=== PATIENT | male | born 1995 | race Two or more races ===

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

== ENCOUNTER 2017-04-26 00:42 | Emergency (ER) | payer OTHER ==
[2017-04-26 01:00] VITALS: BP 153/83; PULSE 87; TEMP 98.3; BMI 34.8
[2017-04-26] MEDS ORDERED: diphenhydrAMINE HCL 25 MG CAPSULE (FP) PO ONE ×2 (02:16→02:26)
--- NOTE | 2017-04-26 02:24 | PDOC ---
History of Present Illness - General Chief Complaint: Rash Stated Complaint: RASH Time Seen by Provider: 04/26/17 01:41 History Source: Patient Exam Limitations: No Limitations - History of Present Illness Initial Comments: 04/26/17 02:16 The patient is a 21M with no PMH who presents with 1 week of a rash. The patient states that he noticed a rash on his inner thighs and then began to spread to his buttocks and states that today it is on his wrists as well. He has never had allergies and denies any new use of soaps, lotions, deodorants, etc. He says he's never had a rash like this before. He denies any other complaints. The patient works at [employer] and is on his feel for work. Past History - Past Medical History Allergies/Adverse Reactions: Allergies Allergy/AdvReac Type Severity Reaction Status Date / Time No Known Allergies Allergy Verified 04/26/17 00:52 Home Medications: Ambulatory Orders NK [No Known Home Medication] 04/26/17 - Immunization History Immunization Up to Date: Yes - Suicide/Smoking/Psychosocial Hx Smoking Status: No Smoking History: Never smoked Have you smoked in the past 12 months: No Number of Cigarettes Smoked Daily: 0 Information on smoking cessation initiated: No Hx Alcohol Use: No Drug/Substance Use Hx: No Substance Use Type: None Review of Systems - Review of Systems Able to Perform ROS?: Yes Comments:: 04/26/17 02:19 GENERAL/CONSTITUTIONAL: No fever or chills. No weakness. HEAD, EYES, EARS, NOSE AND THROAT: No change in vision. No ear pain or discharge. No sore throat. CARDIOVASCULAR: No chest pain, palpitations, or lightheadedness. RESPIRATORY: No cough, wheezing, shortness of breath, or hemoptysis. GASTROINTESTINAL: No nausea, vomiting, diarrhea, constipation, or abdominal pain. GENITOURINARY: No dysuria, frequency, hematuria, or change in urination. MUSCULOSKELETAL: No joint or muscle swelling or pain. No neck or back pain. SKIN: Positive for new rash. NEUROLOGIC: No headache, numbness, tingling, weakness, loss of consciousness, or change in strength/sensation. ENDOCRINE: No increased thirst. No abnormal weight change. HEMATOLOGIC/LYMPHATIC: No anemia, easy bleeding, or history of blood clots. ALLERGIC/IMMUNOLOGIC: No hives or skin allergy. Is the patient limited Mauritanian proficient: No *Physical Exam - Vital Signs Last Vital Signs Temp Pulse Resp BP Pulse Ox 98.3 F 87 18 153/83 97 04/26/17 00:45 04/26/17 00:45 04/26/17 00:45 04/26/17 00:45 04/26/17 00:45 - Physical Exam Comments: 04/26/17 02:58 GENERAL: Well developed, well nourished. Awake and alert. No acute distress. HEENT: Normocephalic, atraumatic. Hearing grossly normal. Moist mucous membranes. PERRLA, EOMI. No conjunctival pallor. NECK: Supple. Full ROM. No JVD. CARDIOVASCULAR: Regular rate and rhythm. No murmurs, rubs, or gallops. PULMONARY: No evidence of respiratory distress. Lungs clear to auscultation bilaterally. No wheezing, rales or rhonchi. ABDOMINAL: Soft. Non-tender. Non-distended. No rebound or guarding. MUSCULOSKELETAL: Normal range of motion at all joints. No bony deformities or tenderness. EXTREMITIES: No cyanosis. No clubbing. No edema. No calf tenderness. SKIN: Erythematous rash around anterior inner thighs, not warm to touch, papular , with erythematous papules that is pustular on the buttocks. Warm and dry. Normal capillary refill. No rashes. No jaundice. NEUROLOGICAL: Alert, awake, appropriate. Cranial nerves 2-12 intact. Normal speech. Gait is normal without ataxia. PSYCHIATRIC: Cooperative. Good eye contact. Appropriate mood and affect. Medical Decision Making - Medical Decision Making 04/26/17 03:00 The patient is a 21M with no PMH who presents with a rash which is likely folliculitis. Will d/c with f/u with resident clinic. *DC/Admit/Observation/Transfer Diagnosis at time of Disposition: Rash - Discharge Dispostion Disposition: HOME Condition at time of disposition: Stable Admit: No - Referrals Referrals: Wong David MD [Staff Physician] - - Patient Instructions Printed Discharge Instructions: DI for Folliculitis Additional Instructions: Please return to the ER if symptoms persist, worsen, or new symptoms arise. Please follow up with your primary care physician in 2-3 days. Please return to the ER if you have any signs or symptoms of chest pain, shortness of breath, uncontrollable fever, chills, nausea, vomiting, numbness, tingling, or weakness in any part of your body, changes in vision, or slurred speech. - Post Discharge Activity
--- NOTE | 2017-04-26 06:21 | PDOC ---
Attending Attestation - HPI HPI: 04/26/17 06:22 Patient is a 21 year old male with no significant past medical history who presents to the ED with complaints of groin rash that began 1 week ago. Patient reports experiencing inner thigh rash that began form last week and has to begun to radiate to buttocks. He reports noticing this morning the formation of the rash on his left wrist, prompting him to come into the ED for further evaluation. Patient states he was unable to schedule an appointment with his PMD until June of this year. Denies chest pain, Sob. Denies nausea, vomiting. Denies fevers, chills. Denies change in food, change in soaps, detergents. Denies contact with sick individuals, out of state traveling. Denies any other symptoms. Allergies: None Social history: Lives with parents. No smoking. No alcohol. No illicit drugs. Surgical history: None PMD: Not on staff - Physicial Exam PE: 04/26/17 06:22 GENERAL: Awake, alert, and fully oriented, in no acute distress HEAD: No signs of trauma EYES: PERRLA, EOMI, sclera anicteric, conjunctiva clear ENT: Auricles normal inspection, hearing grossly normal, nares patent, oropharynx clear without exudates. Moist mucosa NECK: Normal ROM, supple, no lymphadenopathy, JVD, or masses LUNGS: Breath sounds equal, clear to auscultation bilaterally. No wheezes, and no crackles HEART: Regular rate and rhythm, normal S1 and S2, no murmurs, rubs or gallops ABDOMEN: Soft, nontender, normoactive bowel sounds. No guarding, no rebound. No masses EXTREMITIES: Normal range of motion, no edema. No clubbing or cyanosis. No cords , erythema, or tenderness NEUROLOGICAL: Normal speech, cranial nerves intact, negative pronator drift, 5/ 5 strength in all 4 extremities, normal sensation to light touch in all 4 extremities, normal cerebellar exam, normal gait, normal reflexes and tone SKIN: +Erythematous papules in the groin bilaterally. +Erythematous papules on the buttocks. +Few pustular papules on the buttocks. REmainder of skin exam: warm, Dry, normal turgor, no rashes or lesions noted. - Medical Decision Making 04/26/17 06:22 Documentation prepared by Darryl Delaney, acting as medical office professional instructor for Yomna Nassef, MD, /DO. <ElainaDarryl gutierrez - Last Filed: 04/26/17 06:22> - Resident Resident Name: Ramirez Matthews - ED Attending Attestation I have performed the following: I have examined & evaluated the patient, The case was reviewed & discussed with the resident, I agree w/resident's findings & plan, Exceptions are as noted - Medical Decision Making 04/26/17 06:39 21yo M p/w papular rash in groin/buttocks, some pustules, likely folliculitis. No associated systemic symptoms of fever, bodyaches, myalgias, N/V. PT referred to family medicine walk in clinic. I discussed the physical exam findings, ancillary test results and final diagnoses with the patient. I answered all of the patient's questions. The patient was satisfied with the care received and felt comfortable with the discharge plan and treatment plan. The patient will call their primary care physician within 24 hours to arrange follow-up and will return to the Emergency Department with any new, persistent or worsening symptoms. <Yusuf Vera - Last Filed: 04/26/17 06:41>
== END 2017-04-26 03:20 | disposition home or self-care (01) ==
LOC: JER 00:42
DX: R21 Rash and other nonspecific skin eruption (principal)
CPT/HCPCS: 99281-25

== ENCOUNTER 2017-10-07 02:06 | Emergency (ER) | payer OTHER ==
--- NOTE | 2017-10-07 02:51 | PDOC ---
History of Present Illness - General Chief Complaint: Scabies Stated Complaint: RASH Time Seen by Provider: 10/07/17 02:31 History Source: Patient - History of Present Illness Initial Comments: 10/07/17 03:19 22-year-old male complaining of scabies infestation and itchiness and bites to lower extremity. Patient is noted to have interphalangeal bites. No bites to the axilla or groin patient reports that he works at [employer] and needs treatment prior to returning to work Past History - Past Medical History Allergies/Adverse Reactions: Allergies Allergy/AdvReac Type Severity Reaction Status Date / Time No Known Allergies Allergy Verified 04/26/17 00:52 Home Medications: Ambulatory Orders Permethrin 5% Topical Cream [Elimite -] 1 applic TP ONCE #1 tube 10/07/17 - Immunization History Immunization Up to Date: Yes - Suicide/Smoking/Psychosocial Hx Smoking Status: No Smoking History: Never smoked Have you smoked in the past 12 months: No Number of Cigarettes Smoked Daily: 0 Hx Alcohol Use: No Drug/Substance Use Hx: No Substance Use Type: None Review of Systems - Review of Systems Able to Perform ROS?: Yes Is the patient limited Moldovan proficient: No Integumentary: Yes: Pruritus *Physical Exam - Vital Signs 10/07/17 03:18 Last Vital Signs Temp Pulse Resp BP Pulse Ox 98.5 F 70 16 128/78 100 10/07/17 02:28 10/07/17 02:28 10/07/17 02:28 10/07/17 02:28 10/07/17 02:28 - Physical Exam General Appearance: Yes: Appropriately Dressed Extremity: positive: Erythema, Other (bites to bilateral lower extremity and foot. scatterederythemato lower ext arm and fingers) Integumentary: positive: Normal Color, Dry, Warm Neurologic: positive: Fully Oriented, Alert Progress Note - Progress Note Progress Note: SCabies 5 *DC/Admit/Observation/Transfer Diagnosis at time of Disposition: Scabies - Discharge Dispostion Disposition: HOME - Prescriptions Prescriptions: Permethrin 5% Topical Cream [Elimite -] 1 applic TP ONCE #1 tube - Referrals Referrals: Macrina Meraz MD [Staff Physician] - Call tomorrow - Patient Instructions Printed Discharge Instructions: Scabies Additional Instructions: apply lotion to body for 8-14 hours. wash all clothes in hot water. follow up with a zipper setter as soon as possible. - Post Discharge Activity Forms/Work/School Notes: Back to Work
[2017-10-07 03:13] VITALS: BP 128/78; PULSE 70; TEMP 98.5; BMI 28.7
--- NOTE | 2017-10-07 03:20 | PDOC ---
*Physical Exam - Vital Signs Last Vital Signs Temp Pulse Resp BP Pulse Ox 98.5 F 70 16 128/78 100 10/07/17 02:28 10/07/17 02:28 10/07/17 02:28 10/07/17 02:28 10/07/17 02:28 Medical Decision Making - Medical Decision Making 10/07/17 03:20 agree with care from PHUONG Cuellar *DC/Admit/Observation/Transfer Diagnosis at time of Disposition: Scabies - Discharge Dispostion Disposition: HOME Condition at time of disposition: Stable - Prescriptions Prescriptions: Permethrin 5% Topical Cream [Elimite -] 1 applic TP ONCE #1 tube - Referrals Referrals: Macrina Meraz MD [Staff Physician] - Call tomorrow - Patient Instructions Printed Discharge Instructions: Scabies Additional Instructions: apply lotion to body for 8-14 hours. wash all clothes in hot water. follow up with a metal mold dresser as soon as possible. - Post Discharge Activity Forms/Work/School Notes: Back to Work
== END 2017-10-07 03:29 | disposition home or self-care (01) ==
LOC: JER 02:06
DX: B86 Scabies (principal)
CPT/HCPCS: 99281-25

== ENCOUNTER 2018-05-19 12:39 | Emergency (ER) | payer OTHER ==
[2018-05-19 12:45] VITALS: BMI 40.3
[2018-05-19 14:01] LABS: BASO % 0.1 % (0-2.0); EOS % 0.2 % (0-4.5); HEMATOCRIT 48.3 % (35.4-49); HEMOGLOBIN 16.3 GM/dL (11.7-16.9); LYMPH % 7.4 % (8-40); MCH 27.5 pg (25.7-33.7); MCHC 33.7 g/dl (32.0-35.9); MEAN CELL VOLUME 81.6 fl (80-96); MEAN PLT VOLUME 9.1 fl (7.5-11.1); MONO % 6.8 % (3.8-10.2); NEUT % 85.5 % (42.8-82.8); PLATELET COUNT 150 K/MM3 (134-434); RBC 5.93 M/mm3 (4.00-5.60); RDW 13.8 % (11.9-15.9); WHITE BLOOD COUNT 7.9 K/mm3 (4.0-10.0)
[2018-05-19 14:01] LABS: URINE APPEARANCE CLEAR; URINE BILIRUBIN NEGATIVE (<2.0 mg/dL); URINE COLOR YELLOW; URINE GLUCOSE (UA) NEGATIVE (NEGATIVE); URINE KETONE NEGATIVE (NEGATIVE); URINE LEUK ESTERASE TRACE (NEGATIVE); URINE NITRITE NEGATIVE (NEGATIVE); URINE PROTEIN NEGATIVE (NEGATIVE); URINE UROBILINOGEN NEGATIVE mg/dL (0.2-1.0)
[2018-05-19 14:02] LABS: URINE MUCUS RARE
[2018-05-19 14:31] LABS: ALBUMIN 4.2 g/dl (3.4-5.0); ALK PHOS 61 U/L (45-117); ANION GAP 6 MMOL/L (8-16); BLOOD UREA NITROGEN 23 mg/dL (7-18); CALCIUM 8.4 mg/dL (8.5-10.1); CHLORIDE 100 mmol/L (98-107); CO2 27 mmol/L (21-32); CREATININE 1.6 mg/dL (0.55-1.3); GLUCOSE,RANDOM 101 mg/dL (74-106); POTASSIUM 3.6 mmol/L (3.5-5.1); SGOT/AST 8 U/L (15-37); SGPT/ALT 36 U/L (13-61); SODIUM 133 mmol/L (136-145); TOT PROT 9.3 g/dl (6.4-8.2)
[2018-05-19] MEDS ORDERED: ACETAMINOPHEN INJECTION 100 ML IVPB ONE (14:51)
[2018-05-19] MEDS ORDERED: SODIUM CHLORIDE 1,000 ML IV STA ×2 (14:54→15:37)
[2018-05-19] MEDS ORDERED: ACETAMINOPHEN 1000 MG/100 ML VIAL (NON FORMULARY) IVPB ONE (14:54)
[2018-05-19 15:11] LABS: LIPASE 124 U/L (73-393)
--- NOTE | 2018-05-19 15:50 | PDOC ---
History of Present Illness - General Chief Complaint: Pain, Acute Stated Complaint: ABD / BACK PAIN Time Seen by Provider: 05/19/18 14:13 History Source: Patient Exam Limitations: No Limitations - History of Present Illness Travel History: No Initial Comments: 05/19/18 15:10 22-year-old male presents to ED with lower abdominal pain last night followed by 3 episodes of vomiting and 2 episodes of brown watery stool. Patient states then developed bilateral rib pain radiating to his kidneys since 3 AM causing him difficulty sleeping. Patient states a total of approximately 12 episodes of vomiting since onset. Patient denies history of renal stones, difficulty urinating. Recent travel, recent illness, abdominal distention, difficulty breathing or cough. Timing/Duration: reports: constant, changing over time Quality: reports: mild, cramping Abdominal Pain Onset Location: reports: RUQ, LUQ Pain Radiation: reports: back Activities at Onset: reports: none Aggravating Factors: improves with: None Alleviating Factors: improves with: None Past History - Travel Traveled outside of the country in the last 30 days: No Close contact w/someone who was outside of country & ill: No - Past Medical History Allergies/Adverse Reactions: Allergies Allergy/AdvReac Type Severity Reaction Status Date / Time No Known Allergies Allergy Verified 05/19/18 12:43 Home Medications: Ambulatory Orders Permethrin 5% Topical Cream [Elimite -] 1 applic TP ONCE #1 tube 10/07/17 COPD: No - Immunization History Immunization Up to Date: Yes - Suicide/Smoking/Psychosocial Hx Smoking Status: No Smoking History: Never smoked Have you smoked in the past 12 months: No Number of Cigarettes Smoked Daily: 0 Hx Alcohol Use: No Drug/Substance Use Hx: No Substance Use Type: None Patient Lives Alone: No Lives with/in: parents Review of Systems - Review of Systems Able to Perform ROS?: No Is the patient limited [place] Citizen proficient: No Constitutional: Yes: Chills, Fever, Loss of Appetite HEENTM: No: Symptoms Reported Respiratory: No: Symptoms reported Cardiac (ROS): No: Symptoms Reported ABD/GI: Yes: Diarrhea, Nausea, Poor Appetite, Poor Fluid Intake, Vomiting, Abdominal cramping : No: Symptoms Reported Musculoskeletal: Yes: Back Pain Integumentary: No: Symptoms Reported Neurological: No: Symptoms reported Endocrine: No: Symptoms Reported Hematologic/Lymphatic: No: Symptoms Reported *Physical Exam - Vital Signs Last Vital Signs Temp Pulse Resp BP Pulse Ox 101.1 F H 109 H 18 125/76 98 05/19/18 12:43 05/19/18 12:43 05/19/18 12:43 05/19/18 12:43 05/19/18 12:43 - Physical Exam General Appearance: Yes: Nourished, Appropriately Dressed. No: Apparent Distress HEENT: positive: EOMI, CHACE, TMs Normal, Pharynx Normal. negative: Pale Conjunctivae Neck: positive: Supple Respiratory/Chest: positive: Lungs Clear, Normal Breath Sounds. negative: Respiratory Distress, Accessory Muscle Use Cardiovascular: positive: Regular Rhythm, Tachycardia. negative: Murmur Gastrointestinal/Abdominal: positive: Soft, Tenderness (epigastric) Musculoskeletal: negative: CVA Tenderness Extremity: positive: Normal Capillary Refill. negative: Pedal Edema Integumentary: positive: Normal Color, Warm, Moist Neurologic: positive: Normal Mood/Affect, Motor Strength 5/5 (ambulatory) Moderate Sedation - Procedure Monitoring Vital Signs: Procedure Monitoring Vital Signs Temperature 101.1 F H 05/19/18 12:43 Pulse Rate 109 H 05/19/18 12:43 Respiratory Rate 18 05/19/18 12:43 Blood Pressure 125/76 05/19/18 12:43 O2 Sat by Pulse Oximetry (%) 98 05/19/18 12:43 ED Treatment Course - LABORATORY CBC & Chemistry Diagram: 05/19/18 13:15 05/19/18 13:15 - ADDITIONAL ORDERS Additional order review: Laboratory Results 05/19/18 05/19/18 05/19/18 13:22 13:15 13:15 Sodium 133 L Potassium 3.6 Chloride 100 Carbon Dioxide 27 Anion Gap 6 L BUN 23 H Creatinine 1.6 H Creat Clearance w eGFR 55.38 Random Glucose 101 Lactic Acid 1.4 Calcium 8.4 L Total Bilirubin 1.0 AST 8 L ALT 36 Alkaline Phosphatase 61 Total Protein 9.3 H Albumin 4.2 Lipase 124 Urine Color Yellow Urine Appearance Clear Urine pH 5.0 Ur Specific [place] 1.031 Urine Protein Negative Urine Glucose (UA) Negative Urine Ketones Negative Urine Blood 1+ H Urine Nitrite Negative Urine Bilirubin Negative Urine Urobilinogen Negative Ur Leukocyte Esterase Trace Urine WBC (Auto) 11 Urine RBC (Auto) 2 Urine Mucus Rare 05/19/18 13:15 RBC 5.93 H MCV 81.6 MCHC 33.7 RDW 13.8 MPV 9.1 Neutrophils % 85.5 H D Lymphocytes % 7.4 L D Monocytes % 6.8 Eosinophils % 0.2 D Basophils % 0.1 - RADIOLOGY Radiology Studies Ordered: Category Date Time Status SPIRAL- RENAL-STONE CT [CT] Stat CT Scan 05/19/18 15:38 Ordered - Medications Given in the ED: ED Medications Discontinued Medications Generic Name Dose Route Start Last Admin Trade Name Julia PRN Reason Stop Dose Admin Acetaminophen 1,000 mg 05/19/18 14:54 05/19/18 14:58 Ofirmev Injection - IVPB 05/19/18 14:55 1,000 mg ONCE ONE Administration Medical Decision Making - Medical Decision Making 05/19/18 15:16 CC: Nausea vomiting diarrhea abdominal cramping with fever and chills since last night. Patient states generalized weakness and rib pain. Exam. Patient with epigastric tenderness no CVA tenderness. Plan: Labs, urine, IV fluids IV Tylenol and will reevaluate 05/19/18 16:19 Laboratory Tests 05/19/18 05/19/18 05/19/18 13:15 13:15 13:15 WBC 7.9 Hgb 16.3 Hct 48.3 Neutrophils % 85.5 H D Lymphocytes % 7.4 L D Sodium 133 L Potassium 3.6 Chloride 100 Carbon Dioxide 27 Anion Gap 6 L BUN 23 H Creatinine 1.6 H Creat Clearance w eGFR 55.38 Random Glucose 101 Lactic Acid 1.4 Calcium 8.4 L Total Bilirubin 1.0 AST 8 L ALT 36 Alkaline Phosphatase 61 Total Protein 9.3 H Albumin 4.2 Lipase 124 Urine Blood Urine Urobilinogen Ur Leukocyte Esterase Urine WBC (Auto) Urine RBC (Auto) 05/19/18 13:22 WBC Hgb Hct Neutrophils % Lymphocytes % Sodium Potassium Chloride Carbon Dioxide Anion Gap BUN Creatinine Creat Clearance w eGFR Random Glucose Lactic Acid Calcium Total Bilirubin AST ALT Alkaline Phosphatase Total Protein Albumin Lipase Urine Blood 1+ H Urine Urobilinogen Negative Ur Leukocyte Esterase Trace Urine WBC (Auto) 11 Urine RBC (Auto) 2 Second liter of normal saline ordered. Patient also sent for spiral CT. Patient states feeling better and requesting to eat. 05/19/18 17:30 CT shows normal liver spleen pancreas gallbladder and adrenal glands including kidneys. There is no aortic aneurysm. There is no evidence of free intraperitoneal fluid or bowel obstruction. There is no gross pathology. Patient states is feeling much better will discharge home with Zofran *DC/Admit/Observation/Transfer Diagnosis at time of Disposition: Nausea & vomiting - Discharge Dispostion Disposition: HOME Condition at time of disposition: Improved - Referrals - Patient Instructions Printed Discharge Instructions: DI for Nausea -- Adult, DI for Diarrhea and Traveler's Diarrhea -- Adult Additional Instructions: Follow bland diet for the next 48 hours and advance as tolerated. Drink plenty of fluids rest, and take Zofran as needed for nausea. If you develop another fever please take Motrin 600 mg. - Post Discharge Activity
[2018-05-19 17:49] VITALS: BP 132/110; PULSE 93; TEMP 98.2
== END 2018-05-19 17:54 | disposition home or self-care (01) ==
LOC: JER 12:39
PROC: 3E033NZ Introduction of Analgesics, Hypnotics, Sedatives into Peripheral Vein, Percutaneous Approach (ICD-10-PCS; principal; 2018-05-19)
PROC: 3E0337Z Introduction of Electrolytic and Water Balance Substance into Peripheral Vein, Percutaneous Approach (ICD-10-PCS; 2018-05-19)
DX: R11.2 Nausea with vomiting, unspecified (principal)
CPT/HCPCS: 36415; 74176-TC; 80053; 81003; 81015; 83605; 83690; 85025; 87086; 96361; 96374; 99283-25; J0131; J7030

== ENCOUNTER 2019-05-12 10:47 | Emergency (ER) | payer OTHER ==
[2019-05-12 11:02] VITALS: BP 124/71; PULSE 97; BMI 38.0
--- NOTE | 2019-05-12 12:13 | PDOC ---
History of Present Illness - General Chief Complaint: Vomiting/Diarrhea Stated Complaint: CHEST/BACK PAIN Time Seen by Provider: 05/12/19 11:40 History Source: Patient Exam Limitations: No Limitations - History of Present Illness Initial Comments: 05/12/19 12:08 HISTORY OF PRESENT ILLNESS: 23-year-old otherwise healthy male presents emergency department for evaluation of vomiting and loose brown stools for 2 days and right-sided chest pain starting this morning upon awakening. When he woke up he reported having mild shortness of breath and did have one episode of vomiting at that time. He reports he has not vomited since then and currently does not feel nauseous. Pain reports the right-sided chest pain radiates to his back. Patient states 1 month ago he took a airplane flight to [place] and back for a cruise where he visited multiple countries in the [place]. He reports his stools have been loose and brown and denies abdominal pain at present. He denies taking any medication or leg swelling. No recent travel or sick contacts. PAST MEDICAL HISTORY: Denies past medical history SURGICAL HISTORY: Denies ALLERGIES: No known drug allergies REVIEW OF SYSTEMS General/Constitutional: Denies fever or chills. Denies weakness, weight change. HEENT: Denies change in vision. Denies ear pain or discharge. Denies sore throat. Cardiovascular: See HPI Respiratory: Denies cough, wheezing, or hemoptysis. Gastrointestinal: See HPI Genitourinary: Denies dysuria, frequency, or change in urination. Musculoskeletal: Denies joint or muscle swelling or pain. Denies neck or back pain. Skin and breasts: Denies rash or easy bruising. Neurologic: Denies headache, vertigo, loss of consciousness, or loss of sensation. Psychiatric: Denies depression or anxiety. Endocrine: Denies increased thirst. Denies abnormal weight change. Hematologic/Lymphatic: Denies anemia, easy bleeding, or history of blood clots. Allergic/Immunologic: Denies hives or skin allergy. Denies latex allergy. PHYSICAL EXAM General Appearance: Well-appearing, appropriately dressed. No apparent distress , no intoxication. HEENT: EOMI, PERRLA, normal ENT inspection, normal voice, TMs normal, pharynx normal. No conjunctival pallor. No photophobia, scleral icterus. Respiratory/Chest: Lungs CTAB. No shortness of breath, respiratory distress, accessory muscle use. No crackles, rales, rhonchi, stridor, wheezing, dullness. Reproducible pain to the right side of the chest starting at the third and fourth ribs at the right sternal border following down the sternum and across the lower ribs. No ecchymosis, signs of trauma, flail chest. Cardiovascular: RRR. S1, S2. No JVD, murmur, bradycardia, tachycardia. Vascular Pulses: Dorsalis-Pedis (R): 2+, Dorsalis-Pedis (L): 2+ Gastrointestinal/Abdominal: Normal bowel sounds. Abdomen soft, non-distended. No tenderness or rebound tenderness. No organomegaly, pulsatile mass, guarding, hernia, hepatomegaly, splenomegaly. Integumentary: Appropriate color, dry, warm. No cyanosis, erythema, jaundice or rash Past History - Past Medical History Allergies/Adverse Reactions: Allergies Allergy/AdvReac Type Severity Reaction Status Date / Time No Known Allergies Allergy Verified 05/19/18 12:43 Home Medications: Ambulatory Orders Permethrin 5% Topical Cream [Elimite -] 1 applic TP ONCE #1 tube 10/07/17 Ondansetron HCl [Zofran] 4 mg PO TID PRN #12 tablet 05/19/18 COPD: No - Immunization History Immunization Up to Date: Yes - Psycho Social/Smoking Cessation Hx Smoking Status: No Smoking History: Never smoked Have you smoked in the past 12 months: No Number of Cigarettes Smoked Daily: 0 Information on smoking cessation initiated: No Hx Alcohol Use: No Drug/Substance Use Hx: No Substance Use Type: None *Physical Exam - Vital Signs Last Vital Signs Temp Pulse Resp BP Pulse Ox 97 H 18 124/71 96 05/12/19 10:59 05/12/19 10:59 05/12/19 10:59 05/12/19 10:59 Medical Decision Making - Medical Decision Making 05/12/19 12:13 A/P: 23-year-old male with right-sided chest pain, abdominal pain, nausea, vomiting and diarrhea for 2 days Physical exam is unremarkable Differential diagnosis includes but is not limited to-pulmonary embolism, ACS, pneumonia, gastroenteritis, electrolyte abnormality Labs including cardiac profile and lipase Chest x-ray Urinalysis EKG Transfer to the main ER for continued evaluation. Signout given to JIMMY Underwood for further management. Discharge - Discharge Information Problems reviewed: Yes Clinical Impression/Diagnosis: Nausea & vomiting - Follow up/Referral - Patient Discharge Instructions - Post Discharge Activity
[2019-05-12] MEDS ORDERED: SODIUM CHLORIDE 1,000 ML IV STA (12:15)
--- NOTE | 2019-05-12 12:32 | PDOC ---
*Physical Exam - Vital Signs Last Vital Signs Temp Pulse Resp BP Pulse Ox 97 H 18 124/71 96 05/12/19 10:59 05/12/19 10:59 05/12/19 10:59 05/12/19 10:59 - Physical Exam General Appearance: Yes: Nourished, Appropriately Dressed. No: Apparent Distress Respiratory/Chest: positive: Lungs Clear, Normal Breath Sounds. negative: Respiratory Distress, Accessory Muscle Use Cardiovascular: positive: Regular Rhythm, Regular Rate, S1, S2. negative: Murmur Musculoskeletal: positive: Other (Tenderness palpation of the right chest wall.) Integumentary: positive: Normal Color, Dry, Warm Neurologic: positive: Fully Oriented, Alert, Normal Mood/Affect, Normal Response <Tsering Underwood - Last Filed: 05/15/19 10:15> - Vital Signs Last Vital Signs Temp Pulse Resp BP Pulse Ox 97 H 18 124/71 96 05/12/19 10:59 05/12/19 10:59 05/12/19 10:59 05/12/19 10:59 <Almita Burns - Last Filed: 05/15/19 11:18> ED Treatment Course - LABORATORY CBC & Chemistry Diagram: 05/12/19 12:40 05/12/19 12:40 <Tsering Underwood - Last Filed: 05/15/19 10:15> - LABORATORY CBC & Chemistry Diagram: 05/12/19 12:40 05/12/19 12:40 - ADDITIONAL ORDERS Additional order review: Laboratory Results 05/12/19 05/12/19 05/12/19 12:40 12:40 12:40 PT with INR 14.30 H INR 1.21 H PTT (Actin FS) 30.1 D-Dimer 644 H Sodium 139 Potassium 4.0 Chloride 107 Carbon Dioxide 25 Anion Gap 7 L BUN 22.2 H Creatinine 1.0 Est GFR (CKD-EPI)AfAm 124.14 Est GFR (CKD-EPI)NonAf 107.11 Random Glucose 85 Calcium 8.8 Magnesium 2.0 Total Bilirubin 1.2 H AST 22 ALT 25 Alkaline Phosphatase 58 Creatine Kinase 232 Troponin I < 0.02 Total Protein 7.7 Albumin 4.1 Lipase 59 L 05/12/19 12:40 RBC 5.65 H MCV 82.9 MCHC 33.5 RDW 14.1 MPV 9.1 Neutrophils % 64.4 D Lymphocytes % 20.0 D Monocytes % 14.6 H D Eosinophils % 0.7 D Basophils % 0.3 - Medications Given in the ED: ED Medications Discontinued Medications Generic Name Dose Route Start Last Admin Trade Name Julia PRN Reason Stop Dose Admin Sodium Chloride 1,000 mls @ 1,000 mls/hr 05/12/19 12:15 05/12/19 12:43 Normal Saline - IV 05/12/19 13:14 1,000 mls/hr ASDIR STA Administration <Almita Burns - Last Filed: 05/15/19 11:18> Medical Decision Making - Medical Decision Making 05/12/19 15:46 Patient was signed out to me by PHUONG Diego from [employer]. Patient has positive travel history within a month, right-sided chest pain and vomiting. Chest pain is only mildly reproducible. EKG shows a sinus rhythm with a right superior axis deviation, normal intervals , normal axis. No acute ST-T wave changes. This is an atypical chest pain. Orders for d-dimer and troponin were ordered by PHUONG Diego. D-dimer elevated at 644. Given recent travel history with chest pain CTA ordered of the chest to rule out PE. GI cocktail given with some relief of symptoms. Labs otherwise unremarkable. Patient currently pending CTA report for discharge. Signout given to JIMMY Hoffmann <Tsering Underwood - Last Filed: 05/15/19 10:15> - Medical Decision Making 05/12/19 13:59 The patient was seen and evaluated in conjunction with midlevel provider under my direct supervision, ancillary studies were reviewed. I agree with the plan as outlined with JIMMY Underwood. HPI, workup/dispo as outlined. VS reviewed, as documented. 05/15/19 11:17 <Almita Burns - Last Filed: 05/15/19 11:18> Discharge - Discharge Information Problems reviewed: Yes <Tsering Underwood - Last Filed: 05/15/19 10:15> <Almita Burns - Last Filed: 05/15/19 11:18> - Discharge Information Clinical Impression/Diagnosis: Chest pain Qualifiers: Chest pain type: unspecified Qualified Code(s): R07.9 - Chest pain, unspecified Condition: Stable Disposition: HOME - Patient Discharge Instructions Patient Printed Discharge Instructions: DI for Costochondritis Additional Instructions: Thank you for choosing [facility]. It was a pleasure taking care of you. Likely this is musculoskeletal pain Take Motrin 600 mg every 6 hours as needed for pain. Take with food You were incidentally noted with 4 mm nodule in left lung Follow-up with your doctor in 2 days Return to the Emergency Department if your symptoms worsen or persist or have other concerning symptoms. - Post Discharge Activity Work/Back to School Note: Back to Work
[2019-05-12 13:05] LABS: BASO % 0.3 % (0-2.0); EOS % 0.7 % (0-4.5); HEMATOCRIT 46.9 % (35.4-49); HEMOGLOBIN 15.7 GM/dL (11.7-16.9); MCH 27.8 pg (25.7-33.7); MCHC 33.5 g/dl (32.0-35.9); MEAN CELL VOLUME 82.9 fl (80-96); MEAN PLT VOLUME 9.1 fl (7.5-11.1); MONO % 14.6 % (3.8-10.2); NEUT % 64.4 % (42.8-82.8); PLATELET COUNT 142 K/MM3 (134-434); RBC 5.65 M/mm3 (4.00-5.60); RDW 14.1 % (11.9-15.9); WHITE BLOOD COUNT 5.5 K/mm3 (4.0-10.0)
[2019-05-12] MEDS ORDERED: FAMOTIDINE 20 MG/50 ML IVPB 20 MG/50 ML MG IVPB ONE (13:14)
[2019-05-12] MEDS ORDERED: ONDANSETRON 4 MG/2 ML VIAL IVPUSH ONE (13:15)
[2019-05-12] MEDS ORDERED: MAG HYDROX/AL HYDROX/SIMETH 30 ML UNIT-DOSE CUP PO ONE (13:15)
[2019-05-12 13:19] LABS: INR 1.21 (0.83-1.09); PROTHROMBIN TIME (PATIENT) 14.3 SEC (9.7-13.0)
[2019-05-12 13:22] LABS: ACTIVATED PTT 30.1 SECONDS (25.2-36.5)
[2019-05-12 13:37] LABS: ALBUMIN 4.1 g/dl (3.4-5.0); ALK PHOS 58 U/L (45-117); ANION GAP 7 MMOL/L (8-16); BILIRUBIN,TOTAL 1.2 mg/dL (0.2-1); BLOOD UREA NITROGEN 22.2 mg/dL (7-18); CALCIUM 8.8 mg/dL (8.5-10.1); CHLORIDE 107 mmol/L (98-107); CO2 25 mmol/L (21-32); GLUCOSE,RANDOM 85 mg/dL (74-106); LIPASE 59 U/L (73-393); SGOT/AST 22 U/L (15-37); SGPT/ALT 25 U/L (13-61); SODIUM 139 mmol/L (136-145); TOT PROT 7.7 g/dl (6.4-8.2)
[2019-05-12] MEDS ORDERED: ONDANSETRON 4 MG/2 ML VIAL ONE (16:49)
--- NOTE | 2019-05-12 17:30 | PDOC ---
*Physical Exam - Vital Signs Last Vital Signs Temp Pulse Resp BP Pulse Ox 97 H 18 124/71 96 05/12/19 10:59 05/12/19 10:59 05/12/19 10:59 05/12/19 10:59 <VilmaRossy - Last Filed: 05/12/19 17:27> - Vital Signs Last Vital Signs Temp Pulse Resp BP Pulse Ox 97 H 18 124/71 96 05/12/19 10:59 05/12/19 10:59 05/12/19 10:59 05/12/19 10:59 <Almita Burns - Last Filed: 05/13/19 16:14> ED Treatment Course - LABORATORY CBC & Chemistry Diagram: 05/12/19 12:40 05/12/19 12:40 - ADDITIONAL ORDERS Additional order review: Laboratory Results 05/12/19 05/12/19 05/12/19 12:40 12:40 12:40 PT with INR 14.30 H INR 1.21 H PTT (Actin FS) 30.1 D-Dimer 644 H Sodium 139 Potassium 4.0 Chloride 107 Carbon Dioxide 25 Anion Gap 7 L BUN 22.2 H Creatinine 1.0 Est GFR (CKD-EPI)AfAm 124.14 Est GFR (CKD-EPI)NonAf 107.11 Random Glucose 85 Calcium 8.8 Magnesium 2.0 Total Bilirubin 1.2 H AST 22 ALT 25 Alkaline Phosphatase 58 Creatine Kinase 232 Creatine Kinase Index 0.8 CK-MB (CK-2) 2.0 Troponin I < 0.02 Total Protein 7.7 Albumin 4.1 Lipase 59 L 05/12/19 12:40 RBC 5.65 H MCV 82.9 MCHC 33.5 RDW 14.1 MPV 9.1 Neutrophils % 64.4 D Lymphocytes % 20.0 D Monocytes % 14.6 H D Eosinophils % 0.7 D Basophils % 0.3 - Medications Given in the ED: ED Medications Discontinued Medications Generic Name Dose Route Start Last Admin Trade Name Freq PRN Reason Stop Dose Admin Al Hydroxide/Mg Hydroxide 30 ml 05/12/19 13:15 05/12/19 15:06 Mylanta Oral Suspension - PO 05/12/19 13:16 30 ml ONCE ONE Administration Sodium Chloride 1,000 mls @ 1,000 mls/hr 05/12/19 12:15 05/12/19 12:43 Normal Saline - IV 05/12/19 13:14 1,000 mls/hr ASDIR STA Administration Famotidine/Sodium Chloride 20 mg in 50 mls @ 100 mls/hr 05/12/19 13:14 15:06 Pepcid 20 Mg Premixed Ivpb - IVPB 05/12/19 13:43 100 mls/hr ONCE ONE Administration Ondansetron HCl 4 mg 05/12/19 13:15 05/12/19 15:06 Zofran Injection IVPUSH 05/12/19 13:16 4 mg ONCE ONE Administration <Rossy Esparza - Last Filed: 05/12/19 17:27> - LABORATORY CBC & Chemistry Diagram: 05/12/19 12:40 05/12/19 12:40 - ADDITIONAL ORDERS Additional order review: 05/12/19 12:40 RBC 5.65 H MCV 82.9 MCHC 33.5 RDW 14.1 MPV 9.1 Neutrophils % 64.4 D Lymphocytes % 20.0 D Monocytes % 14.6 H D Eosinophils % 0.7 D Basophils % 0.3 - Medications Given in the ED: ED Medications Discontinued Medications Generic Name Dose Route Start Last Admin Trade Name Freq PRN Reason Stop Dose Admin Al Hydroxide/Mg Hydroxide 30 ml 05/12/19 13:15 05/12/19 15:06 Mylanta Oral Suspension - PO 05/12/19 13:16 30 ml ONCE ONE Administration Sodium Chloride 1,000 mls @ 1,000 mls/hr 05/12/19 12:15 05/12/19 12:43 Normal Saline - IV 05/12/19 13:14 1,000 mls/hr ASDIR STA Administration Famotidine/Sodium Chloride 20 mg in 50 mls @ 100 mls/hr 05/12/19 13:14 15:06 Pepcid 20 Mg Premixed Ivpb - IVPB 05/12/19 13:43 100 mls/hr ONCE ONE Administration Ondansetron HCl 4 mg 05/12/19 13:15 05/12/19 15:06 Zofran Injection IVPUSH 05/12/19 13:16 4 mg ONCE ONE Administration <Almita Burns - Last Filed: 05/13/19 16:14> Medical Decision Making - Medical Decision Making Patient signed out to me by JIMMY Underwood pending results of CTA chest CTA chest results: FINDINGS: No evidence for pulmonary embolism or aortic dissection. No focal consolidation, pleural effusion, or pneumothorax. No acute cardiopulmonary disease. Nonspecific 4 mm noncalcified nodule in the lingula on axial image 44. Given reproducible CP, likely this is MSK in nature stable for dc 05/12/19 17:27 <Rossy Esparza - Last Filed: 05/12/19 17:27> - Medical Decision Making The patient was seen and evaluated in conjunction with midlevel provider under my direct supervision, ancillary studies were reviewed. I agree with the plan as outlined with JIMMY Esparza. HPI, workup/dispo as outlined. VS reviewed, wnl. Vital Signs Temp Pulse Resp BP Pulse Ox 97 H 18 124/71 96 05/12/19 10:59 05/12/19 10:59 05/12/19 10:59 05/12/19 10:59 CT angio chest neg for PE. incidental nodule of the lingula seen otherwise no acute process, pleural effusion or ptx. anticipate discharge, pcp followup, return precautions 05/13/19 16:13 <Almita Burns - Last Filed: 05/13/19 16:14> Discharge - Discharge Information Problems reviewed: Yes - Admission No - Additional Discharge Information Prescription Drug Monitoring Program (I-STOP) results: I-STOP not reviewed <Rossy Esparza - Last Filed: 05/12/19 17:27> <Almita Burns - Last Filed: 05/13/19 16:14> - Discharge Information Clinical Impression/Diagnosis: Chest pain Qualifiers: Chest pain type: unspecified Qualified Code(s): R07.9 - Chest pain, unspecified Condition: Stable Disposition: HOME - Patient Discharge Instructions Patient Printed Discharge Instructions: DI for Costochondritis Additional Instructions: Thank you for choosing [facility]. It was a pleasure taking care of you. Likely this is musculoskeletal pain Take Motrin 600 mg every 6 hours as needed for pain. Take with food You were incidentally noted with 4 mm nodule in left lung Follow-up with your doctor in 2 days Return to the Emergency Department if your symptoms worsen or persist or have other concerning symptoms. - Post Discharge Activity Work/Back to School Note: Back to Work
--- NOTE | 2019-05-13 12:10 | EKG ---
Test Reason : Blood Pressure : / mmHG Vent. Rate : 085 BPM Atrial Rate : 085 BPM P-R Int : 168 ms QRS Dur : 104 ms QT Int : 336 ms P-R-T Axes : 042 190 031 degrees QTc Int : 399 ms NORMAL SINUS RHYTHM RIGHT SUPERIOR AXIS DEVIATION PULMONARY DISEASE PATTERN NONSPECIFIC INTRAVENTRICULAR CONDUCTION DEFECT ABNORMAL ECG NO PREVIOUS ECGS AVAILABLE Confirmed by KAY MATTA MD ([id number]) on 05/13/2019 12:10:15 PM Referred By: Confirmed By:KAY MATTA MD
== END 2019-05-12 17:33 | disposition home or self-care (01) ==
LOC: JERFT 10:47 → JER 10:47
PROC: 3E0337Z Introduction of Electrolytic and Water Balance Substance into Peripheral Vein, Percutaneous Approach (ICD-10-PCS; principal; 2019-05-12)
PROC: 3E033GC Introduction of Other Therapeutic Substance into Peripheral Vein, Percutaneous Approach (ICD-10-PCS; 2019-05-12)
PROC: 3E033GC Introduction of Other Therapeutic Substance into Peripheral Vein, Percutaneous Approach (ICD-10-PCS; 2019-05-12)
DX: R07.9 Chest pain, unspecified (principal); R11.2 Nausea with vomiting, unspecified
CPT/HCPCS: 36415; 71046-TC-FY; 71275-TC; 80053; 82550; 82553; 83690; 83735; 84484; 85025; 85379; 85610; 85730; 93005; 93010; 96361; 96365; 96375; 99285-25; J7030

== ENCOUNTER 2023-04-18 14:42 | Emergency (ER) | payer OTHER, BC ==
[2023-04-18 14:59] VITALS: BP 125/64; PULSE 56; RESP 18; TEMP 98.8; BMI 30.7
== END 2023-04-18 15:22 | disposition home or self-care (01) ==
LOC: FER 14:42
PROC: 0HQKXZZ Repair Right Lower Leg Skin, External Approach (ICD-10-PCS; principal; 2023-04-18)
DX: S81.811A Laceration without foreign body, right lower leg, initial encounter (principal); W26.8XXA Contact with other sharp object(s), not elsewhere classified, initial encounter; Y93.89 Activity, other specified
CPT/HCPCS: 99282-25

== ENCOUNTER 2023-04-25 12:06 | Emergency (ER) | payer OTHER, BC ==
[2023-04-25 12:15] VITALS: BP 119/66; PULSE 74; RESP 18; TEMP 98.6; BMI 31.4
== END 2023-04-25 13:59 | disposition home or self-care (01) ==
LOC: FER 12:06
DX: Z48.00 Encounter for change or removal of nonsurgical wound dressing (principal)
CPT/HCPCS: 99281-25

== ENCOUNTER 2023-05-01 03:12 | Emergency (ER) | payer OTHER, BC ==
[2023-05-01 03:19] VITALS: BP 119/62; PULSE 65; RESP 16; TEMP 98.2; BMI 31.4
== END 2023-05-01 03:40 | disposition home or self-care (01) ==
LOC: FER 03:12
DX: Z48.02 Encounter for removal of sutures (principal)
CPT/HCPCS: 99281-25